=== PATIENT | male | born 1960 | race Caucasian/White ===

== ENCOUNTER 2020-04-26 23:16 | Emergency (ER) | payer OTHER ==
[~2020-04-26] VITALS: Ht 175.3 cm; Wt 85.3 kg
[2020-04-26] MEDS ORDERED: METF500 PO (23:48)
[2020-04-26] MEDS ORDERED: Pravachol40 MG PO (23:51)
[2020-04-26] MEDS ORDERED: OMEP20ER PO (23:51)
[2020-04-26] MEDS ORDERED: OLME20 PO (23:51)
[2020-04-26] MEDS ORDERED: ASPI81CH PO (23:52)
[2020-04-27] MEDS ORDERED: PEPCID40 MG PO (01:08)
[2020-04-27] MEDS ORDERED: Prednisone50 MG PO (01:08)
[2020-04-27] MEDS ORDERED: BENADRYL25 MG PO (01:08)
[2020-04-27] MEDS ORDERED: EPIPEN 2-P0.3 MG/0.1 IM (01:08)
== END 2020-04-27 02:59 | disposition home or self-care (01) ==
LOC: ER 23:16
DX: L27.2 Dermatitis due to ingested food (principal); T78.1XXA Other adverse food reactions, not elsewhere classified, initial encounter; Z79.84 Long term (current) use of oral hypoglycemic drugs; Z79.82 Long term (current) use of aspirin; Z79.899 Other long term (current) drug therapy
CPT/HCPCS: 96372-59; 96374; 96375; 99283-25; J0171; J2930

== ENCOUNTER 2022-10-24 16:14 | Emergency (ER) | payer OTHER ==
[~2022-10-24] VITALS: Ht 172.7 cm; Wt 82.5 kg
[~2022-10-24 16:14] MED LIST: ALLO300 PO; AMLO10 PO; ASPI81CH PO; BENADRYL25 MG PO; EPIPEN 2-P0.3 MG/0.1 IM; ERGO400 PO; IBUP200 PO; METF500 PO; METO25ER PO; NIAC500 PO; OLME20 PO; OLMESARTAN-HCT1 EAC4 PO; OMEP20ER PO; PEPCID40 MG PO; Pravachol40 MG PO; Prednisone50 MG PO
[2022-10-24 17:19] LABS: BASOPHILS ABSOLUTE AUTO 0.05 K/mm3 (0.00-0.23); BASOPHILS PERCENT AUTO 1 % (0-2); EOSINOPHILS ABSOLUTE AUTO 0.22 K/mm3 (0.00-0.68); EOSINOPHILS PERCENT AUTO 3 % (0-6); Hematocrit 42.8 % (37.0-53.0); Hemoglobin 14.3 g/dL (13.5-17.5); IMMATURE GRAN ABSOLUTE AUTO 0.03 K/mm3 (0.00-0.10); IMMATURE GRAN PERCENT AUTO 0 % (0-1); LYMPHOCYTES ABSOLUTE AUTO 1.56 K/mm3 (0.84-5.20); LYMPHOCYTES PERCENT AUTO 19 % (21-46); MONOCYTES PERCENT AUTO 7 % (4-13); Mean Corpuscular HGB 28.8 pg (26.0-34.0); Mean Corpuscular HGB Conc 33.4 g/dL (31.5-36.5); Mean Corpuscular Volume 86 fL (80-100); Mean Platelet Volume 10.4 fL (9.1-12.4); NEUTROPHILS ABSOLUTE AUTO 5.67 K/mm3 (1.96-9.15); NEUTROPHILS PERCENT AUTO 70 % (41-73); Platelet Count 314 K/mm3 (150-400); RDW Coefficient Variation 13.7 % (11.7-14.2); RDW Standard Deviation 42.5 fL (35.1-46.3); Red Blood Cell Count 4.96 M/mm3 (4.30-5.90); White Blood Cell Count 8.13 K/mm3 (4.00-11.30)
[2022-10-24 17:28] LABS: Magnesium, Blood 2.6 mg/dL (1.6-2.4)
[2022-10-24 17:45] LABS: Albumin, Blood 4.2 g/dL (3.4-5.0); Beta-hydroxybutyrate 2.3 mg/dL (0.2-2.8); Bilirubin, Total 0.4 mg/dL (0.1-1.0); Bun/Creatinine Ratio 20.8 (12.0-20.0); Calcium, Blood 10.2 mg/dL (8.5-10.1); Creatinine, Blood 1.92 mg/dL (0.60-1.20); Globulin, Blood 4.4 g/dL (2.2-4.0); Phosphorus, Blood 3.6 mg/dL (2.5-4.9); Potassium, Blood 4.8 mmol/L (3.5-5.5); Total Protein, Blood 8.6 g/dL (6.4-8.2)
[2022-10-24 17:50] LABS: Source, Urine Clean Catch
[2022-10-24 17:56] LABS: Appearance, Urine Clear (Clear); Bilirubin, Urine Neg (Neg); Blood, Urine Neg (Neg); Color, Urine Yellow (P-Yellow); Glucose Qualitative, Urine 4+ (Neg); Ketones, Urine Neg (Neg); Leukocyte Esterase, Urine Neg (Neg); Nitrite, Urine Neg (Neg); Protein, Urine 1+ (Neg); Specific Gravity, Urine 1.015 (1.003-1.022); Urobilinogen, Urine NORM (Normal)
[2022-10-24 22:32] LABS: Glucose, Blood 575 mg/dL (70-99)
[2022-10-24 23:30] VITALS: BP 149/69
[2022-10-24 23:32] LABS: Glucose, Blood 485 mg/dL (70-99)
[2022-10-24] MEDS ORDERED: HUMALOG KW100 UNIT/1 SC (23:59)
[2022-10-24] MEDS ORDERED: ONDA4ODT MM (23:59)
== END 2022-10-25 00:08 | disposition home or self-care (01) ==
LOC: ER 16:14
PROVIDERS: Student in an Organized Health Care Education/Training Program
DX: E11.65 Type 2 diabetes mellitus with hyperglycemia (principal); R11.10 Vomiting, unspecified; Z79.899 Other long term (current) drug therapy; Z79.82 Long term (current) use of aspirin; Z79.84 Long term (current) use of oral hypoglycemic drugs
CPT/HCPCS: 80053; 82010; 82947; 83735; 84100; 85025; 96361; 96374; 99284-25; J1815; J2405; J7030